=== PATIENT | male | born 1960 | race Caucasian/White ===

== ENCOUNTER → 2018-07-08 | Outpatient (CLI) | payer BC ==
--- NOTE | 2018-07-08 14:24 | XR ---
Right hand HISTORY: Arthritis, pain 3 views of the right hand There is marginal spurring, joint space loss present at the distal interphalangeal joints, metacarpop halangeal joint of the first digit. Hypertrophic changes especially noted at the distal interphalange al joint of the third digit and fifth digit shows gullwing deformity. Bone mineralization and alignme nt are maintained. There is some arthropathy present at the carpometacarpal joint of the first digit, remodeling present at the radiocarpal joint. IMPRESSION: Osteoarthritis, there may be a component of erosive osteoarthritis noted at the digit.
== END ==
LOC: RADXRMAIN 12:39
PROVIDERS: ATTEND Internal Medicine
DX: M19.041 Primary osteoarthritis, right hand (principal)

== ENCOUNTER → 2018-07-29 | Outpatient (CLI) | payer BC ==
--- NOTE | 2018-07-29 13:56 | US ---
EXAMINATION TYPE: US kidneys/renal and bladder DATE OF EXAM: 07/29/2018 COMPARISON: US, CT dated 05/31/20152015 CLINICAL HISTORY: R31.9 Hematuria, unspecified. Hematuria. Hx kidney cyst. EXAM MEASUREMENTS: Right Kidney: 11.0 x 5.5 x 4.8 cm Left Kidney: 10.9 x 5.6 x 4.6 cm Post Void Residual Volume: Not performed Right Kidney: Lower pole slightly obscured by gas. No hydronephrosis or masses seen Left Kidney: Upper pole shows mild caliectasis on one of the views. Complex area seen inferior pole: 2.9 x 3.2 x 2.8 cm. Primarily anechoic. Bladder: ?Artifact vs. internal echoes seen Bilateral Jets seen: Yes There is no evidence for hydronephrosis at this point in time. No nephrolithiasis is seen. Bilateral ureteral jets are seen. Kidneys show normal cortical medullary differentiation. Suspect duplicated system in the right kidney as on prior. IMPRESSION: Lower pole cystic lesion may be simple cystic, appearance may be artifactual. Suggestion of mild fadia ectasis in the upper pole of the left kidney. Patient's prior CT shows portion kidney.
== END ==
LOC: RADUSWWP 12:17
PROVIDERS: ATTEND Internal Medicine
DX: N28.1 Cyst of kidney, acquired (principal)
CPT/HCPCS: 76770

== ENCOUNTER → 2019-07-10 | Outpatient (CLI) | payer BC ==
--- NOTE | 2019-07-10 12:01 | CT ---
EXAMINATION TYPE: CT urogram wo/w con DATE OF EXAM: 07/10/2019 COMPARISON: 05/31/2015 HISTORY: Microscopic hematuria CT DLP: 1998.5 mGycm, Automated Exposure Control for Dose Reduction was Utilized. CONTRAST: CT scan of the abdomen and pelvis is performed with oral and without and with IV Contrast, patient in jected with 100 mL of Isovue 300. FINDINGS: LUNG BASES: No significant abnormality is appreciated. LIVER/GB: No significant abnormality is appreciated. No cholelithiasis on CT. PANCREAS: No significant abnormality is seen. SPLEEN: No splenomegaly. ADRENALS: No nodules or thickening. KIDNEYS: Horseshoe kidneys are seen with left lower moiety 2.5 cm simple fluid attenuated renal cysts . No hydronephrosis of either kidney. No nephrolithiasis seen. Cortical medullary enhancement is unre markable. Excretion is also unremarkable. No uroepithelial thickening. Urinary bladder fills with con trast and is homogeneous with no visualized wall irregularity or thickening. Wall measures 3 mm. Tiny urachal remnant is seen. BOWEL: Few colonic diverticula are seen without pericolonic fat stranding. PROSTATE/SEMINAL VESICLES: The prostate gland is heterogenous containing central zone calcifications and enlarged measuring 5.0 cm in transverse dimension. LYMPH NODES: No greater than 1cm abdominal or pelvic lymph nodes are appreciated. OSSEOUS STRUCTURES: Mild degenerative change of the spine seen. IMPRESSION: 1. 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 No interval growth from the prior 2015. 2. No nephrolithiasis nor hydronephrosis. Urinary bladder is unremarkable. 3. Few scattered colonic diverticula without evidence of acute diverticulitis.
== END | disposition home or self-care (01) ==
LOC: RADCTMAIN 10:01
PROVIDERS: ATTEND Internal Medicine
DX: N28.1 Cyst of kidney, acquired (principal); K57.30 Diverticulosis of large intestine without perforation or abscess without bleeding
CPT/HCPCS: 74178; 74400; Q9967

== ENCOUNTER → 2020-03-04 | Outpatient (CLI) | payer BC ==
--- NOTE | 2020-03-04 13:21 | US ---
EXAMINATION TYPE: US liver DATE OF EXAM: 03/04/2020 COMPARISON: CT 07/10/2019 CLINICAL HISTORY: R94.5 Abnormal results of liver function studies. EXAM MEASUREMENTS: Liver Length: 16.4 cm Gallbladder Wall: 0.2 cm CBD: 0.4 cm Right Kidney: 11.9 x 4.0 x 5.7 cm Pancreas: Tail obscured by overlying bowel gas, visualized portions wnl Liver: No evident mass. Mild heterogeneity of echotexture. Gallbladder: wnl Evidence for sonographic Sharpe's sign: No CBD: wnl Right Kidney: No hydronephrosis or masses seen IMPRESSION: Limited exam. There may be underlying hepatocellular disease, hepatic steatosis.
== END | disposition home or self-care (01) ==
LOC: RADUSWWP 10:17
PROVIDERS: ATTEND Internal Medicine
DX: R94.5 Abnormal results of liver function studies (principal)
CPT/HCPCS: 76705

== ENCOUNTER 2020-03-15 07:19 | Day surgery (SDC) | payer BC ==
[~2020-03-15 07:19] MED LIST: LACTATED RINGERS 1,000 ML IV SCH; LIDOCAINE 1% (10MG/ML) FOR IV START INTRADERMA PRN
[2020-03-15 07:39] VITALS: TEMP 97
[2020-03-15] MEDS ORDERED: PROPOFOL 10 MG/ML 20 ML VIAL IV ONE (08:08)
[2020-03-15] MEDS ORDERED: LIDOCAINE 1% INJ 10MG/ML (20 ML MDV) ONE (08:08)
--- NOTE | 2020-03-15 08:33 | P.PCN ---
Date of Procedure: 03/15/20 Description of Procedure: BRIEF HISTORY: Patient is a 59-year-old male presenting for outpatient colonoscopy for screening for neoplasm colon. No change in bowel habits or blood per rectum. PROCEDURE PERFORMED: Colonoscopy. PREOPERATIVE DIAGNOSIS: Screening for malignant neoplasm of the colon. ESTIMATED BLOOD LOSS: Minimal. IV sedation per Anesthesia. PROCEDURE: After informed consent was obtained, the patient, was brought into the endoscopy unit. IV sedation was administered by Anesthesia under continuous monitoring. Digital rectal examination was normal. Initially the Olympus CF-190 flexible video colonoscope was then inserted in the rectum, gradually advanced into the cecum without any difficulty. Careful examination was performed as the scope was gradually being withdrawn. Ileocecal valve and the appendiceal orifice were visualized and appeared normal. Prep was excellent. Mucosa of the cecum, ascending colon, transverse colon, descending colon, sigmoid colon, and rectum appeared normal. Retroflexion was performed in the rectum and no lesions were seen, low-grade internal hemorrhoids. The patient tolerated the procedure well. IMPRESSION: Normal-appearing colon from rectum to cecum. RECOMMENDATIONS: Findings of this examination were discussed with the patient in his family. Okay to resume diet. Okay to resume medications. Recommend repeat colonoscopy in 10 years for screening for malignant neoplasm colon, or sooner if any signs or symptoms which warrant further evaluation developed.
[2020-03-15 08:34] VITALS: RESP 16
[2020-03-15 08:54] VITALS: BP 117/75; PULSE 77
== END 2020-03-15 09:11 | disposition home or self-care (01) ==
LOC: ORWHC2ENDO 07:19
PROVIDERS: ATTEND Internal Medicine
DX: Z12.11 Encounter for screening for malignant neoplasm of colon (principal); K64.8 Other hemorrhoids; I10 Essential (primary) hypertension; Z79.899 Other long term (current) drug therapy
CPT/HCPCS: J2001; J2704; G0121

== ENCOUNTER → 2020-03-25 | Outpatient (CLI) | payer BC | END | disposition home or self-care (01) | LOC: LABWHC1 15:57 | PROVIDERS: ATTEND Internal Medicine | DX: Z20.828 Contact with and (suspected) exposure to other viral communicable diseases (principal) | CPT/HCPCS: U0003; C9803 ==